=== PATIENT | male | born 1945 ===

== ENCOUNTER 2020-05-13 06:59 | Day surgery (SDC) | payer OTHER ==
[~2020-05-13 06:59] MED LIST: ADULT LOW DOSE81 M1 PO; TAMS0.4C PO; TOPROL XL25 M1 PO; ZESTRIL2.5 MG PO
== END 2020-05-13 19:15 | disposition home or self-care (01) ==
LOC: CIR.AMB 06:59
PROVIDERS: ATTEND Specialist
DX: K40.90 Unilateral inguinal hernia, without obstruction or gangrene, not specified as recurrent (principal); Z20.822 Contact with and (suspected) exposure to COVID-19; N40.1 Benign prostatic hyperplasia with lower urinary tract symptoms; R33.8 Other retention of urine; D17.5 Benign lipomatous neoplasm of intra-abdominal organs

== ENCOUNTER → 2020-09-26 | Outpatient (CLI) | payer OTHER | END | disposition home or self-care (01) | LOC: SONOGRAMA 10:02 | PROVIDERS: ATTEND Surgery | DX: N40.1 Benign prostatic hyperplasia with lower urinary tract symptoms (principal) ==

== ENCOUNTER 2021-06-15 12:35 | Outpatient (CLI) | payer OTHER | END 2021-06-15 12:36 | disposition home or self-care (01) | LOC: LAB 12:35 | PROVIDERS: ATTEND Surgery | DX: R97.20 Elevated prostate specific antigen [PSA] (principal) ==

== ENCOUNTER 2021-07-20 07:17 | Outpatient (CLI) | payer OTHER | END 2021-07-20 07:28 | disposition home or self-care (01) | LOC: SONOGRAMA 07:17 | PROVIDERS: ATTEND Surgery | DX: R97.20 Elevated prostate specific antigen [PSA] (principal) ==

== ENCOUNTER 2021-09-29 07:19 | Outpatient (CLI) | payer OTHER | END 2021-09-29 07:27 | disposition home or self-care (01) | LOC: SONOGRAMA 07:19 | PROVIDERS: ATTEND Surgery | DX: R97.20 Elevated prostate specific antigen [PSA] (principal); N41.1 Chronic prostatitis ==